=== PATIENT | female | born 1940 | race Caucasian/White ===

== ENCOUNTER → 2018-06-09 | Outpatient (CLI) | payer OTHER ==
[~2018-06-09] MED LIST: ACET-1175 PO; ALOE VERA PO; ARTISOL8 OP; ATV/1 PO; CALC600T9 PO; CHOL1CHW10 PO; CHRO1CAP3 PO; FERR27TA5 PO; FLV1 PO; LEVO75TA PO; NRN300 PO; OMEG10002 PO; PANT40TA PO; RXC5 PO; SERT25TA PO; TRAV0.00 OPB; VITA1TAB4 PO
--- NOTE | 2018-06-09 12:25 | DIAGNOSTIC IMAGING REPORT ---
CERVICAL SPINE MRI HISTORY: CERVICAL RADICULOPATHY TECHNIQUE: Multiplanar multisequence MRI of the cervical spine was performed without the use of contrast. COMPARISON STUDY: Cervical spine radiograph 04/14/2016. FINDINGS: Straightening of the cervical spine. Approximate 1 mm of anterolisthesis of C3 on C4. Mild disc space narrowing at C2-C3, C3-C4, and C4-C5. Severe disc space narrowing and endplate osteophytes at C5-C6 and C6-C7. There is also mild disc space narrowing at C7-T1 and within the upper thoracic spine. The cervical spinal cord is normal in signal intensity. The visualized posterior fossa is unremarkable. Prevertebral soft tissues and the C1-C2 interval are intact. No fractures within the cervical spine. Moderate facet degenerative changes throughout the cervical spine. C2-C3: Tiny broad-based posterior disc bulge without significant central canal or neural foraminal narrowing. C3-C4: Tiny broad-based posterior disc bulge without significant central canal narrowing. There is mild bilateral neural foraminal narrowing due to the uncovertebral and facet hypertrophy. C4-C5: No significant central canal or neural foraminal narrowing. C5-C6: Small broad-based posterior disc osteophyte complex resulting in near-complete effacement of the anterior thecal sac without cord deformity. There is mild bilateral neural foraminal narrowing. C6-C7: Broad-based posterior disc osteophyte complex resulting in near-complete effacement of the anterior thecal sac without cord deformity. There is mild bilateral neural foraminal narrowing. C7-T1: No significant central canal or neural foraminal narrowing. T1-T2: Small left paracentral focal disc protrusion only seen on the sagittal views. This measures 4 x 3 mm and results in slight left anterior cord deformity. No significant neural foraminal narrowing. IMPRESSION: 1. A small left paracentral focal disc protrusion at T1-T2 which results in mild left anterior cord deformity. 2. Additional degenerative changes within the cervical spine as described above most pronounced at the C5-C6 and C6-C7 levels. Electronically signed by: Monster Gaston M.D. 06/09/2018 12:24 PM Dictated Date/Time: 06/09/2018 12:09 PM
== END | disposition home or self-care (01) ==
LOC: C.MRIBC 11:08
PROVIDERS: ATTEND Pain Medicine Interventional Pain Medicine
DX: M54.12 Radiculopathy, cervical region (principal); M51.24 Other intervertebral disc displacement, thoracic region

== ENCOUNTER 2020-06-11 08:19 | Inpatient (IN) ==
--- NOTE | 2020-05-15 16:08 | PAT Medication Instructions ---
Medication Instructions Date of Service May 15, 2020 Home Medications aloe vera 5,000 mg PO QAM ascorbic acid (vitamin C) [Vitamin C] 500 mg PO BID bilberry 100 mg PO QAM calcium carbonate [Calcium 600] 600 mg PO BID celecoxib [Celebrex] 200 mg PO QAM cholecalciferol (vitamin D3) [Vitamin D3] 50 mcg PO QAM chromium amino acid chelate 400 mcg PO QAM cyclosporine [Restasis] 1 drp OPHTHALMIC (EYE) Q12H duloxetine 30 mg PO QAM folic acid 1 mg PO QAM gabapentin 300 mg PO BID iron 18 mg PO QAM levothyroxine 75 mcg PO QAM melatonin 5 mg PO HS PRN methotrexate sodium 2.5 mg PO WK multivitamin 1 tab PO QAM omega 8-gxl-xye-fish oil [Fish Oil] 2 cap PO QAM pantoprazole 40 mg PO QAM sucralfate 1 g PO BID tofacitinib [Xeljanz XR] 11 mg PO QAM travoprost [Travatan Z] 1 drp OPHTHALMIC (EYE) PM turmeric 400 mg PO QAM vitamin A 8,000 unit PO QAM vitamin B complex-folic acid [B Complex 100] 1 tab PO QAM vitamin E 400 unit PO QAM ASK your surgeon for instructions celecoxib [Celebrex] 200 mg PO QAM ASK your prescriber and surgeon methotrexate sodium 2.5 mg PO WK tofacitinib [Xeljanz XR] 11 mg PO QAM STOP taking 2 weeks before surgery (or as soon as possible if surgery is within 2 weeks) bilberry 100 mg PO QAM omega 8-rur-zle-fish oil [Fish Oil] 2 cap PO QAM turmeric 400 mg PO QAM vitamin E 400 unit PO QAM aloe vera 5,000 mg PO QAM chromium amino acid chelate 400 mcg PO QAM DO NOT take the morning of surgery ascorbic acid (vitamin C) [Vitamin C] 500 mg PO BID calcium carbonate [Calcium 600] 600 mg PO BID cholecalciferol (vitamin D3) [Vitamin D3] 50 mcg PO QAM folic acid 1 mg PO QAM iron 18 mg PO QAM multivitamin 1 tab PO QAM sucralfate 1 g PO BID vitamin A 8,000 unit PO QAM vitamin B complex-folic acid [B Complex 100] 1 tab PO QAM Take morning of surgery With a small sip of water, OTHERWISE NOTHING TO EAT OR DRINK AFTER MIDNIGHT: cyclosporine [Restasis] 1 drp OPHTHALMIC (EYE) Q12H duloxetine 30 mg PO QAM gabapentin 300 mg PO BID levothyroxine 75 mcg PO QAM pantoprazole 40 mg PO QAM Take evening before surgery ascorbic acid (vitamin C) [Vitamin C] 500 mg PO BID calcium carbonate [Calcium 600] 600 mg PO BID cyclosporine [Restasis] 1 drp OPHTHALMIC (EYE) Q12H gabapentin 300 mg PO BID melatonin 5 mg PO HS PRN (if needed) sucralfate 1 g PO BID travoprost [Travatan Z] 1 drp OPHTHALMIC (EYE) PM Other Notes If you have any questions please call us at [phone] or [phone] or [phone] or [phone]
--- NOTE | 2020-05-17 08:21 | History & Physical Report ---
Date of Service May 17, 2020 date of surgery: 06-11-20 Procedure: Left Total Knee Arthroplasty Assessment & Plan (1) Arthritis of knee, left: Risks and benefits of procedure discussed in detail today, patient would like to proceed with a Left total knee replacement at [facility] as scheduled. will obtain medical clearance from Dr Wheeler prior to surgery as well as obtain PATs at [facility]. Will place on ASA 81mg po bid x 1 month post op, f/u 2 weeks post op for routine post-operative care and x-ray, sooner if having any problems. will make arrangements for HHPT at the time of discharge. At this point in time, has failed conservative measures and would like to proceed with surgical intervention. The risks and benefits have been discussed including, but not limited to, risk of infection, nerve injury, stiffness, loss of motion, failure to improve, etc. Reasonable outcomes and options of treatment were discussed. An explanation of appropriate alternatives to the procedure that may be advantageous were discussed and their risks and benefits, as well as the risks and benefits of not proceeding with treatment. I offered to answer any additional inquiries concerning the treatment involved. All the patient's questions were answered. The patient is agreeable, understanding of the treatment plan and alternatives, and wishes to proceed with the treatment plan. History of Present Illness Chief Complaint: left knee pain Primary Care Provider: Colin Wheeler Ms Aguilar is a 79 year old female who complains of left knee pain, presents for pre-op evaluation prior to a left total knee replacement by dr Smalls at [facility]. she complains of pain, crepitus, decreased range of motion, instability and stiffness in the left knee. She states that the symptoms have been chronic and non-traumatic. she states that the symptoms occur constantly with intermittent worsening. Currently the patient states that the symptoms are moderate-severe. The pain is described as aching, sharp and throbbing. The symptoms occur continuously. The symptoms are aggravated by ascending stairs, daily activities, first steps while awake walking. Prior NSAIDs include Ibuprofen and Aleve. She has been treated with previous cortisone and visco injections in the past without much relief. She has had Pt and sometimes uses a knee brace. Allergies Allergy/AdvReac Type Severity Reaction Status Date / Time No Known Drug Allergies Allergy Unknown NKDA Verified 05/13/20 11:19 pollen extracts Allergy Unknown sneezing Verified 05/16/20 15:08 Home Medications Home Medications Medication Instructions Recorded Confirmed Type aloe vera 5,000 mg PO QAM 05/13/20 05/13/20 History ascorbic acid (vitamin C) [Vitamin 500 mg PO BID 05/13/20 05/13/20 History C] bilberry 100 mg PO QAM 05/13/20 05/13/20 History calcium carbonate [Calcium 600] 600 mg PO BID 05/13/20 05/13/20 History celecoxib [Celebrex] 200 mg PO QAM 05/13/20 05/13/20 History cholecalciferol (vitamin D3) 50 mcg PO QAM 05/13/20 05/13/20 History [Vitamin D3] chromium amino acid chelate 400 mcg PO QAM 05/13/20 05/13/20 History cyclosporine [Restasis] 1 drp OPHTHALMIC (EYE) Q12H 05/13/20 05/13/20 History duloxetine 30 mg PO QAM 05/13/20 05/13/20 History folic acid 1 mg PO QAM 05/13/20 05/13/20 History gabapentin 300 mg PO BID 05/13/20 05/13/20 History iron 18 mg PO QAM 05/13/20 05/13/20 History levothyroxine 75 mcg PO QAM 05/13/20 05/13/20 History melatonin 5 mg PO HS PRN 05/13/20 05/13/20 History methotrexate sodium 2.5 mg PO WK 05/13/20 05/13/20 History multivitamin 1 tab PO QAM 05/13/20 05/13/20 History omega 0-rus-ugm-fish oil [Fish Oil] 2 cap PO QAM 05/13/20 05/13/20 History pantoprazole 40 mg PO QAM 05/13/20 05/13/20 History sucralfate 1 g PO BID 05/13/20 05/13/20 History tofacitinib [Xeljanz XR] 11 mg PO QAM 05/13/20 05/13/20 History travoprost [Travatan Z] 1 drp OPHTHALMIC (EYE) PM 05/13/20 05/13/20 History turmeric 400 mg PO QAM 05/13/20 05/13/20 History vitamin A 8,000 unit PO QAM 05/13/20 05/13/20 History vitamin B complex-folic acid [B 1 tab PO QAM 05/13/20 05/13/20 History Complex 100] vitamin E 400 unit PO QAM 05/13/20 05/13/20 History Past Med/Surg History Medical History Cardiac murmur faxing for most recent echo ([facility]) Depression Diverticular disease Dry eye syndrome GERD (gastroesophageal reflux disease) Glaucoma tx for high eye pressure Hiatal hernia Hypothyroidism Osteoarthritis Rheumatoid arthritis c-spine xray: 04/14/16: mod degenerative changes, no evidence of instability with flexion and extension Spinal stenosis Surgical History Fusion of spine L2-L4 decompression fusion: 05/08/16: Grade 4 view, MAC #3, ETT 7.0 (poor view with MAC3, Anterior view) History of bowel resection 1988 History of cholecystectomy History of colonoscopy History of esophagogastroduodenoscopy (EGD) History of hysterectomy History of tonsillectomy History of tooth extraction History of total hip arthroplasty RIGHT Family History Mother Diabetes Sister Diabetes Social History Smoking Status: Never smoker Second Hand Exposure: No; Do You Dip or Chew Tobacco: No; Tobacco Cessation Education Requested by Patient: No Hx Alcohol Use: No Hx Substance Use: No Preferred Language: [place]an Communication Ability: Effective Finish Off Operator Required: No Beliefs That Will Affect Care: None Current Living Situation: Spouse Other Information That Helps Us Care for You: No Feels Safe at Home: Yes Safety Concerns: Feels Safe At This Time Review of Systems Review of Systems: All systems reviewed & are unremarkable except as noted in HPI & below Constitutional: no fever, no chills and no sweats Respiratory: no cough and no dyspnea Cardiovascular: no chest pain, no dyspnea and no orthopnea Gastrointestinal: no abdominal pain, no nausea and no vomiting Musculoskeletal: as per Subjective / HPI Physical Exam Physical Exam: Ht: 5ft Wt: 73.5kg BP: 138/68 Constitutional: WD/WN, vitals as above no acute distress Respiratory: normal respiratory effort, lungs clear to auscultation no respiratory distress, no labored breathing and does not use accessory muscles Cardiovascular: RRR, no murmur, no edema Gastrointestinal (Abdomen): normal bowel sounds, soft, nontender, no hepatosplenomegaly Musculoskeletal: Knee: + knee abnormal to inspection (Left knee), + effusion (+1 effusion), + limited ROM of knee (ROM 0/3/110), + knee ROM with crepitation, + joint line tenderness (medial joint line) and + Bethany's sign positive; no deformity, no skin erythema, no ecchymosis, no valgus laxity, no varus laxity, anterior drawer test negative, Bony's sign negative and pivot shift test negative Results & Data Results & Data ([facility]) Diagnostic Findings Left Knee X-ray: left knee series confirm advanced degenerative changes to the left knee, greatest medial compartments and patellofemoral joint, showing joint space narrowing, osteophyte formation and subchondral sclerosis. no acute bony pathology noted.
--- NOTE | 2020-05-17 15:31 | Anesthesiology Consultation ---
Date of Service May 17, 2020 Assessment & Plan (1) Encounter for pre-operative examination: Per PAT assessment on 05/17: Travel screen- No travel in greater than 2 weeks. Did travel to [place] 2+ weeks ago to visit brother. No known COVID-19 positive contacts. No current COVID-19 related symptoms. Patient scheduled for preop protocol COVID-19 testing 06/05 ([facility]). Awaiting results. - SAB vs. GA: patient reports significant foot pain and panic attack after spinal with previous hip surgery. Concerned about spinal for upcoming left TKA. Discussed SAB vs. GA. To discuss further AM DOS. - S/P L2-L4 decompression fusion: 05/08/16: Grade 4 view, MAC #3, ETT 7.0 (poor view with MAC3, Anterior view) Chart Review Chart Review: Acceptable Risk for Surgery (pending surgeon-ordered PCP clearance (Dr. Wheeler)) and Patient seen in Pre Admission Testing Teaching & Discussion Pre-Anesthesia Teaching/Discussion Notes: Instructed NPO after midnight before surgery,except medications with 15 cc of water. Medication instructions provided according to the PAT guidelines. History Surgery Operation Date: 06/11/20 10:05 Proposed Procedures p Left Total Knee Arthroplasty - Tyron Smalls DO Height/Weight Height: 5 ft Weight: 74.5 kg Allergies Allergy/AdvReac Type Severity Reaction Status Date / Time No Known Drug Allergies Allergy Unknown NKDA Verified 05/13/20 11:19 pollen extracts Allergy Unknown sneezing Verified 05/16/20 15:08 Medications Home Medications Medication Instructions Recorded Confirmed Last Taken aloe vera 5,000 mg PO QAM 05/13/20 05/13/20 Unknown ascorbic acid (vitamin C) [Vitamin 500 mg PO BID 05/13/20 05/13/20 Unknown C] bilberry 100 mg PO QAM 05/13/20 05/13/20 Unknown calcium carbonate [Calcium 600] 600 mg PO BID 05/13/20 05/13/20 Unknown celecoxib [Celebrex] 200 mg PO QAM 05/13/20 05/13/20 Unknown cholecalciferol (vitamin D3) 50 mcg PO QAM 05/13/20 05/13/20 Unknown [Vitamin D3] chromium amino acid chelate 400 mcg PO QAM 05/13/20 05/13/20 Unknown cyclosporine [Restasis] 1 drp OPHTHALMIC (EYE) Q12H 05/13/20 05/13/20 Unknown duloxetine 30 mg PO QAM 05/13/20 05/13/20 Unknown folic acid 1 mg PO QAM 05/13/20 05/13/20 Unknown gabapentin 300 mg PO BID 05/13/20 05/13/20 Unknown iron 18 mg PO QAM 05/13/20 05/13/20 Unknown levothyroxine 75 mcg PO QAM 05/13/20 05/13/20 Unknown melatonin 5 mg PO HS PRN 05/13/20 05/13/20 Unknown methotrexate sodium 2.5 mg PO WK 05/13/20 05/13/20 Unknown multivitamin 1 tab PO QAM 05/13/20 05/13/20 Unknown omega 7-txi-vff-fish oil [Fish Oil] 2 cap PO QAM 05/13/20 05/13/20 Unknown pantoprazole 40 mg PO QAM 05/13/20 05/13/20 Unknown sucralfate 1 g PO BID 05/13/20 05/13/20 Unknown tofacitinib [Xeljanz XR] 11 mg PO QAM 05/13/20 05/13/20 Unknown travoprost [Travatan Z] 1 drp OPHTHALMIC (EYE) PM 05/13/20 05/13/20 Unknown turmeric 400 mg PO QAM 05/13/20 05/13/20 Unknown vitamin A 8,000 unit PO QAM 05/13/20 05/13/20 Unknown vitamin B complex-folic acid [B 1 tab PO QAM 05/13/20 05/13/20 Unknown Complex 100] vitamin E 400 unit PO QAM 05/13/20 05/13/20 Unknown Past Medical History Medical History Depression Diverticular disease Dry eye syndrome GERD (gastroesophageal reflux disease) Glaucoma tx for high eye pressure Hiatal hernia Hypothyroidism Osteoarthritis Rheumatoid arthritis Spinal stenosis Exercise / Class Metabolic Activity III < 4 Walking/Shop/Light housework Past Family History Family History Mother Diabetes Sister Diabetes Past Surgical History Surgical History Fusion of spine L2-L4 decompression fusion: 7/15/16: Grade 4 view, MAC #3, ETT 7.0 (poor view with MAC3, Anterior view) History of bowel resection 1988 History of cholecystectomy History of colonoscopy History of esophagogastroduodenoscopy (EGD) History of hysterectomy History of tonsillectomy History of tooth extraction History of total hip arthroplasty RIGHT Past Anesthesia History No Hx of Anesthesia Complications and No Family Hx of Anesthesia Complications History of PONV No Hx of PONV and Hx of Motion Sickness Social History Smoking Status: Never smoker Do You Dip or Chew Tobacco: No Hx Alcohol Use: No Hx Substance Use: No substance use type: does not use Review of Systems Patient denies chest pain, shortness of breath, fever, chills, reflux, cough, wheezing, palpitations. Physical Exam Vital Signs VITALS BP 115/60 P 65 TEMP 98.2 SP02 94%RA RESP 18 PHYSICAL Full neck and c-spine range of motion. Full TMJ range of motion. TMD 3 finger breaths Mallampati Score 3 Dentition: intact, + bridge on right lower side Lungs: clear throughout to auscultation Cardiac: regular rate and rhythm, I/ systolic murmur Spine: normal Carotid arteries: negative bruit Extremities: no edema Testing Laboratory Results 05/17/20 15:55 05/17/20 15:55 PT 10.3 Seconds (9.0-12.0) 05/17/20 15:55 INR 1.0 (0.9-1.1) 05/17/20 15:55 APTT 27.9 Seconds (21.0-31.0) 05/17/20 15:55 Hemoglobin A1c 5.4 % (4.5-5.6) 05/17/20 15:55 Urine Color Dark Yellow 05/17/20 Unknown Urine Appearance Clear (Clear) 05/17/20 Unknown Urine pH 6.5 (4.5-7.5) 05/17/20 Unknown Ur Specific [place] 1.033 (1.000-1.030) H 05/17/20 Unknown Urine Protein Negative (Negative) 05/17/20 Unknown Urine Glucose (UA) Negative (Negative) 05/17/20 Unknown Urine Ketones Trace (Negative) H 05/17/20 Unknown Urine Nitrite Negative (Negative) 05/17/20 Unknown Ur Leukocyte Esterase Negative (Negative) 05/17/20 Unknown Blood Type O Positive 05/17/20 15:55 Antibody Screen NEGATIVE 05/17/20 15:55 Electrocardiogram Date: 05/17/20 NSR at 69bpm. Low voltage QRS. No significant change compared to 04/14/16 per physician practice manager review. Chest X-Ray Date: 05/17/20 Cardiomediastinal and hilar silhouettes are within normal limits. Unchanged mild right hemidiaphragmatic elevation. Mild chronic blunting of the right costophrenic angle. No pneumothorax, pleural effusion, airspace consolidation or overt pulmonary edema. Degenerative changes of the shoulders and spine. Surgical clips project over the abdominal left upper quadrant. Lumbar levoscoliosis with partially imaged posterior interbody mirian and screw fusion hardware and discectomy changes. IMPRESSION: No acute process. Stress Test Date: 08/02/19 Type: nuclear No EKG criteria for myocardial ischemia. Mild epigastric discomfort during procedure. Myocardial perfusion imaging was normal. No ischemia/no infarction. EF 96% (spuriously elevated on account of small LV cavity and the partial volume effect). Cervical Spine Date: 04/14/16 mod degenerative changes, no evidence of instability with flexion and extension
[2020-05-17 16:22] LABS: Basophils # (auto) 0.01 K/uL (0-0.2); Basophils % (auto) 0.1 %; Eosinophils # (auto) 0.07 K/uL (0-0.5); Hematocrit (blood only) 35.4 % (37-47); Hemoglobin 12.3 g/dL (12.0-16.0); Immature Granulocytes # (auto) 0.01 K/uL (0.00-0.02); Immature Granulocytes % (auto) 0.1 %; Lymphocytes # (auto) 1.56 K/uL (1.2-3.4); Lymphocytes % (auto) 22.6 %; Mean Corpuscular Hemoglobin 32.7 pg (25-34); Mean Corpuscular Hgb Conc 34.7 g/dL (32-36); Mean Corpuscular Volume 94.1 fL (80-100); Mean Platelet Volume 10.2 fL (7.4-10.4); Monocytes # (auto) 0.85 K/uL (0.11-0.59); Monocytes % (auto) 12.3 %; Neutrophils # (auto) 4.41 K/uL (1.4-6.5); Neutrophils % (auto) 63.9 %; Platelet Count 231 K/uL (130-400); RDW Coefficient of Variation 14.8 % (11.5-14.5); RDW Standard Deviation 50.9 fL (36.4-46.3); Red Blood Count 3.76 M/uL (4.2-5.4); White Blood Count 6.91 K/uL (4.8-10.8)
[2020-05-17 16:29] LABS: Albumin Level 3.7 gm/dl (3.4-5.0); BUN Creatinine Ratio 20.7 (10-20); Calcium 8.9 mg/dl (8.5-10.1); Creatinine Clr Calc Pharmacy 49.8 ml/min; Est GFR (African American) 77.2; Est GFR (Non-African American) 66.6; Potassium 4.3 mmol/L (3.5-5.1)
[2020-05-17 16:35] LABS: Partial Thromboplastin Time 27.9 Seconds (21.0-31.0); Prothrombin Time 10.3 Seconds (9.0-12.0)
--- NOTE | 2020-05-17 16:36 | XRay Report ---
XR chest Pre-admission PA/Lat HISTORY: 79 years-old Female pat preoperative exam. No acute chest complaints COMPARISON: Chest radiograph 04/14/2016 TECHNIQUE: PA and lateral views of the chest FINDINGS: Cardiomediastinal and hilar silhouettes are within normal limits. Unchanged mild right hemidiaphragma tic elevation. Mild chronic blunting of the right costophrenic angle. No pneumothorax, pleural effusi on, airspace consolidation or overt pulmonary edema. Degenerative changes of the shoulders and spine. Surgical clips project over the abdominal left upper quadrant. Lumbar levoscoliosis with partially i jolie posterior interbody mirian and screw fusion hardware and discectomy changes. IMPRESSION: No acute process. ACT 112: Negative or not required by law. The above report was generated using voice recognition software. It may contain grammatical, syntax o r spelling errors. Electronically signed by: Sanjiv Delvalle M.D. 05/17/2020 4:34 PM
[2020-05-17 16:37] LABS: Appearance Urine Clear (Clear); Bilirubin Urine Negative (Negative); Blood Urine Negative (Negative); Color Urine Dark Yellow; Glucose Urine UA Negative (Negative); Ketones Urine Trace (Negative); Leukocyte Esterase Urine Negative (Negative); Nitrite Urine Negative (Negative); Protein Urine Negative (Negative); Specific Gravity Urine 1.033 (1.000-1.030); Urobilinogen Urine Negative (Negative); pH Urine 6.5 (4.5-7.5)
--- NOTE | 2020-05-17 16:39 | Electrocardiogram Report ---
Test Reason : Blood Pressure : / mmHG Vent. Rate : 069 BPM Atrial Rate : 069 BPM P-R Int : 150 ms QRS Dur : 074 ms QT Int : 426 ms P-R-T Axes : 033 022 037 degrees QTc Int : 456 ms Normal sinus rhythm Low voltage QRS Borderline ECG When compared with ECG of 14-APR-2016 11:35, No significant change was found Confirmed by Vinay Hernandez ([id number]) on 05/17/2020 4:39:02 PM Referred By: Tyron Smalls Confirmed By:Vinay Hernandez
[2020-05-18 05:52] LABS: Estimated Average Glucose 108 mg/dl; Hemoglobin A1C 5.4 % (4.5-5.6)
[~2020-06-11 08:19] MED LIST changes: -ACET-1175 PO; +ACETAMINOPHEN 500 MG TAB PO SCH; -ALOE VERA PO; -ARTISOL8 OP; -ATV/1 PO; +BUPIVACAINE 0.5 % 5 MG/1 ML PF 10ML VIAL ONE; -CALC600T9 PO; +CEFAZOLIN 1000MG 1,000 MG/7.5 ML SYR IV SCH; -CHOL1CHW10 PO; -CHRO1CAP3 PO; +CeleBREX 200 MG CAP PO SCH; +FAMOTIDINE 20 MG TAB PO SCH; -FERR27TA5 PO; -FLV1 PO; +GABAPENTIN 300 MG CAP PO SCH; -LEVO75TA PO; +LIDOCAINE HCL 2% 2 ML VIAL/AMP(20MG/ML) INFIL ONE; +LR 500ML BOLUS, THEN 15ML/HR IV SCH; +METOCLOPRAMIDE HCL 10 MG TABLET PO SCH; +MIDAZOLAM HCL 1 MG/ML 2ML VIAL ONE; -NRN300 PO; -OMEG10002 PO; +ONDANSETRON INJ 2 MG/ML 2 ML VIAL ONE; -PANT40TA PO; +PROPOFOL IV EMULSION 10 MG/ML 20 ML VIAL IV ONE; +ROPIVACAINE 0.5% HCL/PF 150 MG, BUPIVACAINE 0.5% MPF 30 ML, EPINEPHrine 30MG/30ML (OR U... INSTIL SCH; -RXC5 PO; -SERT25TA PO; +TRANEXAMIC ACID 1,000 MG **IV Intra-op IV SCH; +TRANEXAMIC ACID 1,000 MG **IV Pre-op IV SCH; -TRAV0.00 OPB; -VITA1TAB4 PO; +dexAMETHasone 4 MG TAB PO SCH; +fentaNYL citrate 100 MCG/2 ML VIAL ONE
--- NOTE | 2020-06-11 08:37 | History & Physical Bridge Note ---
Date of Service June 11, 2020 History & Physical Bridge Note I have examined the patient, reviewed the History & Physical and in the interval since the performance of the History & Physical I have noted the following changes of clinical significance: no changes noted
[2020-06-11] MEDS ORDERED: ORTHO JOINT ANESTHETIC ONE (09:14)
[2020-06-11] MEDS ORDERED: BACITRACIN INJ 50,000 UNIT VIAL ONE (09:14)
[2020-06-11] MEDS ORDERED: fentaNYL citrate 100 MCG/2 ML VIAL IV PRN (09:26)
[2020-06-11] MEDS ORDERED: ePHEDrine sulfate 50 MG/ML AMP IV PRN (09:26)
[2020-06-11] MEDS ORDERED: ATROPINE SULFATE 0.1 MG/ML 10ML SYR IV PRN (09:26)
[2020-06-11] MEDS ORDERED: ONDANSETRON INJ 2 MG/ML 2 ML VIAL IV PRN ×2 (09:26→12:39)
--- NOTE | 2020-06-11 10:56 | Operative Report ---
Post Operative Report Pre & Post Diagnosis Operation Date: 06/11/20 10:05 Pre-Op Diagnosis: Unilateral Primary Osteoarthritis, Left Knee Post-Op Diagnosis: Unilateral Primary Osteoarthritis, Left Knee I identified the patient and participated in the time-out.: Yes Procedure Operation Date: 06/11/20 10:05 Actual Procedures p Left Total Knee Arthroplasty(Left) utilizing [employer]ph[employer]ave[employer] journey 2 patient matched total knee arthroplasty size 2 femur 1 tibia 12 polyethylene 29 oval patella- Tyron Smalls DO Surgeon Tyron Smalls DO Fixed Wing Pilot DANILO Butcher Estimated Blood Loss 5 Findings Consistent with Post-Op Diagnosis Patient presents with severe end-stage tricompartmental degenerative joint disease varus alignment subchondral sclerosis marginal osteophytes varus alignment subchondral cystic changes with a moderate to large effusion 7 degree flexion contracture Specimens Bone and cartilage Drains Medium bore Hemovac Anesthesia Type MAC Spinal Regional Complications none Disposition Accompanied Patient To Recovery: No Disposition: Recovery Room Indications Patient presents for left total knee arthroplasty for failed attempted conservative management daily corticosteroid injection Visco supplementation relative rest activity modification bracing patient presents above intraoperative findings are noted time surgery Description of Procedure After proper prepping and draping of the left lower extremity anterior midline incision was made over the region of the extensor extensor mechanism after meticulous hemostasis was obtained and maintained in subcutaneous tissues a medial parapatellar incision was made The patella was subluxed lateralward the medial lateral gutter were cleaned from any hypertrophic synovitis and scar tissue of the distal femoral block was placed and the distal femoral osteotomy cut was made subsequently the chamfers anterior and posterior osteotomy cuts were made utilizing the 4-in-1 block the tibia was subsequently subluxed anteriorward medial and ateral meniscal remnants were excised in their entirety remnants of the anterior and posterior cruciate ligaments were excised in their entirety excellent exposure of the proximal tibia was obtained the tibial osteotomy guide was placed on the proximal tibial osteotomy cut was made once again the knee was irrigated with copious amounts of sterile saline solution the patella was subsequently everted lateralward thickened scar tissue around the patella was removed the patella was subsequently cut utilizing a freehand technique and was drilled prepared for final preparation and placement of patella socially flexion-extension gaps were checked and the equal and symmetric trials were placed to the appropriate femoral and tibial trials with poly-spacer being placed for equal flexion and extension gaps and full range of motion including extension to 0 and flexion to 140 the trial components after having been taken to recovery range of motion was subsequently removed meticulous hemostasis was obtained and maintained subsequently a knee block injection of joint cocktail including ropivacaine 0.5% 150 mg. Bupivacaine 0.5% epinephrine 1-200,030 mL's toradol 30 mg dexamethasone 4 mg ketamine 10 mg clonidine 100 micrograms normal saline solution 30 mg was infiltrated into the soft tissues of the posterior knee medial lateral gutters and periosteal synovium special attention was paid to protect neurovascular structures at all times subsequently trial components having been removed the knee was irrigated with sterile saline solution. debris was removed the proximal tibia was subsequently prepared and was made ready for the placement of the tibial component tibial component was also cemented and tamped into position the femoral component was subsequently placed and cemented in the position the patellar component was subsequently cemented in position because hemostasis once again obtained and maintained wound having been thoroughly irrigated with debridement and debridement lavage was performed as well as a medial parapatellar incision closed with #1 Vicryl in interrupted fashion subcutaneous was closed with #2 Vicryl skin was closed with skin clips. PA-C was necessary for prepping and drapping as well as wound closure of deep fascia Sub cutaneous tissue and skin and was necessary for the case. A sterile compressive dressing was placed patient was taken to recovery in stable condition of report dictated by Slim I attest to the content of the Intraoperative Record and any orders documented therein. Any exceptions are noted below. I attest to the content of the Intraoperative Record and any orders documented therein. Any exceptions are noted below.
--- NOTE | 2020-06-11 10:58 | Operative Report ---
Post Operative Report Pre & Post Diagnosis Operation Date: 06/11/20 10:05 Pre-Op Diagnosis: Unilateral Primary Osteoarthritis, Left Knee Post-Op Diagnosis: Unilateral Primary Osteoarthritis, Left Knee I identified the patient and participated in the time-out.: Yes Procedure Operation Date: 06/11/20 10:05 Actual Procedures p Left Total Knee Arthroplasty(Left utilizing Wall & Neph journey 2 patient matched total knee arthroplasty size 2 femur 1 tibia 12 polyethylene 29 oval patella- Tyron Smalls DO Surgeon Tyron Smalls DO Engineering Recruiter DANILO Butcher Estimated Blood Loss 5 Findings Consistent with Post-Op Diagnosis Patient resents with severe end-stage tricompartmental degenerative joint disease varus alignment subchondral sclerosis marginal osteophytes varus alignment with moderate to large effusion Specimens Bone and cartilage Drains Medium bore Hemovac Anesthesia Type MAC Spinal Regional Complications none Disposition Accompanied Patient To Recovery: No Disposition: Recovery Room Indications Patient presents with a failed attempted conservative management clinic physical therapy anti-inflammatories relative rest activity modification corticosteroid injection Visco supplementation the above intraoperative findings were noted Description of Procedure After proper prepping and draping of the left lower extremity anterior midline incision was made over the region of the extensor extensor mechanism after meticulous hemostasis was obtained and maintained in subcutaneous tissues a medial parapatellar incision was made The patella was subluxed lateralward the medial lateral gutter were cleaned from any hypertrophic synovitis and scar tissue of the distal femoral block was placed and the distal femoral osteotomy cut was made subsequently the chamfers anterior and posterior osteotomy cuts were made utilizing the 4-in-1 block the tibia was subsequently subluxed anteriorward medial and ateral meniscal remnants were excised in their entirety remnants of the anterior and posterior cruciate ligaments were excised in their entirety excellent exposure of the proximal tibia was obtained the tibial osteotomy guide was placed on the proximal tibial osteotomy cut was made once again the knee was irrigated with copious amounts of sterile saline solution the patella was subsequently everted lateralward thickened scar tissue around the patella was removed the patella was subsequently cut utilizing a freehand technique and was drilled prepared for final preparation and placement of patella socially flexion-extension gaps were checked and the equal and symmetric trials were placed to the appropriate femoral and tibial trials with poly-spacer being placed for equal flexion and extension gaps and full range of motion including extension to 0 and flexion to 140 the trial components after having been taken to recovery range of motion was subsequently removed meticulous hemostasis was obtained and maintained subsequently a knee block injection of joint cocktail including ropivacaine 0.5% 150 mg. Bupivacaine 0.5% epinephrine 1-200,030 mL's toradol 30 mg dexamethasone 4 mg ketamine 10 mg clonidine 100 micrograms normal saline solution 30 mg was infiltrated into the soft tissues of the posterior knee medial lateral gutters and periosteal synovium special attention was paid to protect neurovascular structures at all times subsequently trial components having been removed the knee was irrigated with sterile saline solution. debris was removed the proximal tibia was subsequently prepared and was made ready for the placement of the tibial component tibial component was also cemented and tamped into position the femoral component was subsequently placed and cemented in the position the patellar component was subsequently cemented in position because hemostasis once again obtained and maintained wound having been thoroughly irrigated with debridement and debridement lavage was performed as well as a medial parapatellar incision closed with #1 Vicryl in interrupted fashion subcutaneous was closed with #2 Vicryl skin was closed with skin clips. PA-C was necessary for prepping and drapping as well as wound closure of deep fascia Sub cutaneous tissue and skin and was necessary for the case. A sterile compressive dressing was placed patient was taken to recovery in stable condition of report dictated by Slim I attest to the content of the Intraoperative Record and any orders documented therein. Any exceptions are noted below. I attest to the content of the Intraoperative Record and any orders documented therein. Any exceptions are noted below.
--- NOTE | 2020-06-11 12:07 | XRay Report ---
XR knee LT 1 or 2V routine HISTORY: 79 years-old Female Surgical Post Op left knee total joint arthroplasty COMPARISON: None TECHNIQUE: 2 views of the left knee FINDINGS: Left knee total joint arthroplasty and patella resurfacing. Anterior midline skin magui are noted a long with expected postsurgical soft tissue swelling and deep tissue air with surgical drainage nayan ter. IMPRESSION: Left knee total joint arthroplasty with expected postoperative changes. ACT 112: Negative or not required by law. The above report was generated using voice recognition software. It may contain grammatical, syntax o r spelling errors. Electronically signed by: Sanjiv Delvalle M.D. 06/11/2020 12:05 PM
--- NOTE | 2020-06-11 12:24 | Anesthesiology Progress Note ---
Date of Service June 11, 2020 Anesthesia Post Procedure Vital Signs Vital Signs: Temp Pulse Pulse Resp BP Pulse Ox 06/11/20 12:10 65 12 144/65 H 94 06/11/20 12:00 70 16 127/56 L 94 06/11/20 11:50 65 13 134/56 L 97 06/11/20 11:42 97.0 F L 66 16 127/52 L 95 06/11/20 09:30 68 18 127/114 H 97 06/11/20 08:57 98.2 F 76 20 159/75 H 96 Pain Intensity Generalized: Pain Intensity: 7 Transfer of Care Handoff Completed per policy Notes Mental Status: alert / awake / arousable and participated in evaluation Patient Amnestic to Procedure: Yes Nausea / Vomiting: adequately controlled Pain: adequately controlled Airway Patency, RR, SpO2: stable & adequate BP & HR: stable & adequate Hydration State: stable & adequate Neuraxial Anesthesia: was administered and sensory block is resolving Anesthetic Complications: no major complications apparent and Pt Satisfied with anesthetic care
[2020-06-11] MEDS ORDERED: OXYCODONE HCL IR 5 MG TAB (IMMEDIATE RELEASE) PO PRN (12:39)
[2020-06-11] MEDS ORDERED: METOCLOPRAMIDE HCL INJ 5 MG/ML 2 ML VIAL IV PRN (12:39)
[2020-06-11] MEDS ORDERED: bisacodyL 10 MG SUPP PR PRN (12:39)
[2020-06-11] MEDS ORDERED: ALUMINUM/MAGNESIUM SUSP 30 ML UDC PO PRN (12:39)
[2020-06-11] MEDS ORDERED: MAGNESIUM HYDROXIDE SUSP 30 ML UDC PO PRN (12:39)
[2020-06-11] MEDS ORDERED: HYDROmorphone INJ 1 MG/ML SYRINGE IV PRN (12:39)
[2020-06-11] MEDS ORDERED: NALOXONE HCL 0.4 MG/1 ML VIAL/CARP IV PRN (12:39)
[2020-06-11] MEDS: SODIUM CHLORIDE 0.9% 1000ML 1,000 ML IV SCH (13:41)
[2020-06-11] MEDS: KETOROLAC TROMETHAMINE 15 MG/ML VIAL IV SCH ×2 (13:42→18:20)
[2020-06-11] MEDS: ACETAMINOPHEN 500 MG TAB PO SCH ×2 (14:50→22:13)
[2020-06-11] MEDS: CEFAZOLIN 1000MG 1,000 MG/7.5 ML SYR IV SCH (18:20)
[2020-06-11] MEDS: ASCORBIC ACID 500 MG TAB PO SCH (20:52)
[2020-06-11] MEDS: SUCRALFATE 1 GM TAB PO SCH (20:53)
[2020-06-11] MEDS: GABAPENTIN 300 MG CAP PO SCH (20:53)
[2020-06-11] MEDS: DOCUSATE SODIUM 100 MG CAP PO SCH (20:53)
[2020-06-11] MEDS: ASPIRIN 81 MG ECTAB PO SCH (20:53)
[2020-06-11] MEDS: CALCIUM CARBONATE 1250MG TAB PO SCH (20:54)
[2020-06-11] MEDS ORDERED: TRAVOPROST Z 0.004% OPH SOLN 2.5 ML BTL OP SCH (21:00)
[2020-06-11] MEDS ORDERED: SENNA 8.6 MG TAB PO SCH (21:00)
[2020-06-12] MEDS: SODIUM CHLORIDE 0.9% 1000ML 1,000 ML IV SCH (00:30)
[2020-06-12] MEDS: CEFAZOLIN 1000MG 1,000 MG/7.5 ML SYR IV SCH (01:11)
[2020-06-12] MEDS: KETOROLAC TROMETHAMINE 15 MG/ML VIAL IV SCH ×2 (01:11→06:11)
[2020-06-12] MEDS: ACETAMINOPHEN 500 MG TAB PO SCH ×2 (06:10→13:36)
[2020-06-12 06:22] LABS: Hematocrit (blood only) 32.3 % (37-47); Hemoglobin 10.9 g/dL (12.0-16.0); Mean Corpuscular Hemoglobin 31.3 pg (25-34); Mean Corpuscular Hgb Conc 33.7 g/dL (32-36); Mean Corpuscular Volume 92.8 fL (80-100); Mean Platelet Volume 10.4 fL (7.4-10.4); Platelet Count 206 K/uL (130-400); RDW Coefficient of Variation 14.5 % (11.5-14.5); RDW Standard Deviation 49.4 fL (36.4-46.3); Red Blood Count 3.48 M/uL (4.2-5.4); White Blood Count 12.44 K/uL (4.8-10.8)
[2020-06-12] MEDS ORDERED: LEVOTHYROXINE SODIUM 100 MCG TABLET PO SCH (06:30)
[2020-06-12 06:53] LABS: BUN Creatinine Ratio 25.3 (10-20); Calcium 8.6 mg/dl (8.5-10.1); Creatinine Clr Calc Pharmacy 54.9 ml/min; Est GFR (African American) 87.1; Est GFR (Non-African American) 75.1; Potassium 4.6 mmol/L (3.5-5.1)
[2020-06-12] MEDS: SUCRALFATE 1 GM TAB PO SCH (08:33)
[2020-06-12] MEDS: DOCUSATE SODIUM 100 MG CAP PO SCH (08:33)
[2020-06-12] MEDS: ASPIRIN 81 MG ECTAB PO SCH (08:34)
[2020-06-12] MEDS: CALCIUM CARBONATE 1250MG TAB PO SCH (08:35)
[2020-06-12] MEDS: ASCORBIC ACID 500 MG TAB PO SCH (08:35)
[2020-06-12] MEDS: GABAPENTIN 300 MG CAP PO SCH (08:35)
[2020-06-12] MEDS ORDERED: CHOLECALCIFEROL 1,000 UNITS 25 MCG TAB PO SCH (09:00)
[2020-06-12] MEDS ORDERED: VITAMIN B COMPLEX TAB PO SCH (09:00)
[2020-06-12] MEDS ORDERED: NON-FORMULARY MEDICATION (Vitamin A 8,000 UNITS) PO SCH (09:00)
[2020-06-12] MEDS ORDERED: TOCOPHERYL, DL-ALPHA 400 UNITS CAP PO SCH (09:00)
[2020-06-12] MEDS ORDERED: NON-FORMULARY MEDICATION (Iron 18 MG) PO SCH (09:00)
[2020-06-12] MEDS ORDERED: MULTIVITAMIN TAB PO SCH (09:00)
[2020-06-12] MEDS ORDERED: FOLIC ACID 1 MG TAB PO SCH (09:00)
[2020-06-12] MEDS ORDERED: DULOXETINE HCL 30 MG CAP PO SCH (09:00)
--- NOTE | 2020-06-12 12:37 | Orthopedic Progress Note ---
Date of Service June 12, 2020 Assessment & Plan (1) History of total left knee replacement: POD #1 s/p left TKA pt/ot dvt proph with ZAN/SCD/ASA plan for d/c home with HHPT after PT today will leave hemovac in until tomorrow have HH pull hemovac tomorrow am. Admission and Anticipated Discharge Date Admission Date: June 11, 2020 Subjective POD #1 s/p Left TKA dr lehman in to see patient just prior to my arrival, she has no complaints. Review of Systems Constitutional: no fever, no chills and no sweats Respiratory: no cough and no dyspnea Cardiovascular: no chest pain and no dyspnea Gastrointestinal: no abdominal pain, no nausea and no vomiting Physical Exam Physical Exam: Vital Signs Temp 37.2 C 06/12/20 07:45 Pulse 70 06/12/20 07:45 Resp 16 06/12/20 07:45 BP 120/67 06/12/20 07:45 Pulse Ox 97 06/12/20 07:45 Intake & Output 06/11/20 06/12/20 06/12/20 18:59 06:59 18:59 Intake Total 1431.667 / 2960.00 0 1528.333 / 2960.00 0 Output Total 946 / 2621 1675 / 2621 Balance 485.667 / 339.000 -146.667 / 339.000 Weight 74.3 kg Intake: IV 731.667 / 1600.000 868.333 / 1600.000 Lr 1,000 ml @ 15 mls/hr IV . 500 / 500 Q24H [facility] Rx#:[id number] Nss 1000ML 1,0 00 ml @ 100 mls/ 131.667 / 1000.000 868.333 / 1000.000 hr IV .Q10H SC H Rx#:[id number] TRANEXAMIC ACI D / 0.7% NACL 1, 100 / 100 000 mg In 100 ml @ 600 mls/hr IV TODAY@0600 [facility] Rx#:[id number] IV Perioperative 700 / 700 Oral 660 / 660 Output: Urine 900 / 2350 1450 / 2350 Estimated Blood Loss 5 / 5 Drain Output 41 / 266 225 / 266 Left Knee Hemo vac #1 266 225 / 266 Other: # Unmeasured Voi ds 1 Constitutional: WD/WN, vitals as above no acute distress Musculoskeletal: Left Leg: NVDI, calf SNT, negative elva sign. DP palpable, able to wiggle toes/ankle movement without difficulty. dressing clean dry and intact. Results & Data ([facility]) Vital Signs (Past 12 Hours) Vital Signs Temp Pulse Resp BP Pulse Ox 06/12/20 07:45 37.2 C 70 16 120/67 97 06/12/20 03:59 36.8 C 80 16 117/70 96 Laboratory Results Laboratory Results WBC 12.44 K/uL (4.8-10.8) H 06/12/20 05:15 RBC 3.48 M/uL (4.2-5.4) L 06/12/20 05:15 Hgb 10.9 g/dL (12.0-16.0) L 06/12/20 05:15 Hct 32.3 % (37-47) L 06/12/20 05:15 MCV 92.8 fL (80-100) 06/12/20 05:15 MCH 31.3 pg (25-34) 06/12/20 05:15 MCHC 33.7 g/dL (32-36) 06/12/20 05:15 RDW Std Deviation 49.4 fL (36.4-46.3) H 06/12/20 05:15 RDW Coeff of Darian 14.5 % (11.5-14.5) 06/12/20 05:15 Plt Count 206 K/uL (130-400) 06/12/20 05:15 MPV 10.4 fL (7.4-10.4) 06/12/20 05:15 Immature Gran % (Auto) 0.1 % 05/17/20 15:55 Neut % (Auto) 63.9 % 05/17/20 15:55 Lymph % (Auto) 22.6 % 05/17/20 15:55 Casey % (Auto) 12.3 % 05/17/20 15:55 Eos % (Auto) 1.0 % 05/17/20 15:55 Baso % (Auto) 0.1 % 05/17/20 15:55 Neut # (Auto) 4.41 K/uL (1.4-6.5) 05/17/20 15:55 Lymph # (Auto) 1.56 K/uL (1.2-3.4) 05/17/20 15:55 Casey # (Auto) 0.85 K/uL (0.11-0.59) H 05/17/20 15:55 Eos # (Auto) 0.07 K/uL (0-0.5) 05/17/20 15:55 Baso # (Auto) 0.01 K/uL (0-0.2) 05/17/20 15:55 Immature Gran # (Auto) 0.01 K/uL (0.00-0.02) 05/17/20 15:55 PT 10.3 Seconds (9.0-12.0) 05/17/20 15:55 INR 1.0 (0.9-1.1) 05/17/20 15:55 APTT 27.9 Seconds (21.0-31.0) 05/17/20 15:55 PTT Ratio 1.0 05/17/20 15:55 Sodium 142 mmol/L (136-145) 06/12/20 05:15 Potassium 4.6 mmol/L (3.5-5.1) 06/12/20 05:15 Chloride 111 mmol/L (98-107) H 06/12/20 05:15 Carbon Dioxide 26 mmol/L (21-32) 06/12/20 05:15 Anion Gap 5.0 (3-11) 06/12/20 05:15 BUN 19 mg/dl (7-18) H 06/12/20 05:15 Creatinine 0.76 mg/dl (0.6-1.2) 06/12/20 05:15 Est Cr Clr Drug Dosing 54.9 ml/min 06/12/20 05:15 Est GFR ( Amer) 87.1 06/12/20 05:15 Est GFR (Non-Af Amer) 75.1 06/12/20 05:15 BUN/Creatinine Ratio 25.3 (10-20) H 06/12/20 05:15 Glucose 124 mg/dl (70-99) H 06/12/20 05:15 Estimat Average Glucose 108 mg/dl 05/17/20 15:55 Hemoglobin A1c 5.4 % (4.5-5.6) 05/17/20 15:55 Calcium 8.6 mg/dl (8.5-10.1) 08/19/20 05:15 Albumin 3.7 gm/dl (3.4-5.0) 05/17/20 15:55 Urine Color Dark Yellow 05/17/20 Unknown Urine Appearance Clear (Clear) 05/17/20 Unknown Urine pH 6.5 (4.5-7.5) 05/17/20 Unknown Ur Specific [place] 1.033 (1.000-1.030) H 05/17/20 Unknown Urine Protein Negative (Negative) 05/17/20 Unknown Urine Glucose (UA) Negative (Negative) 05/17/20 Unknown Urine Ketones Trace (Negative) H 05/17/20 Unknown Urine Blood Negative (Negative) 05/17/20 Unknown Urine Nitrite Negative (Negative) 05/17/20 Unknown Urine Bilirubin Negative (Negative) 05/17/20 Unknown Urine Urobilinogen Negative (Negative) 05/17/20 Unknown Ur Leukocyte Esterase Negative (Negative) 05/17/20 Unknown Blood Type O Positive 05/17/20 15:55 Antibody Screen NEGATIVE 05/17/20 15:55
[2020-06-12] MEDS ORDERED: CeleBREX 200 MG CAP PO SCH (21:00)
--- NOTE | 2020-06-13 07:46 | Discharge Summary ---
Date of Service date of discharge: June 12, 2020 date of admission: 06-11-20 Admission HPI Per Admitting Provider Ms Aguilar is a 79 year old female who complains of left knee pain, presents for pre-op evaluation prior to a left total knee replacement by dr Smalls at [facility]. she complains of pain, crepitus, decreased range of motion, instability and stiffness in the left knee. She states that the symptoms have been chronic and non-traumatic. she states that the symptoms occur constantly with intermittent worsening. Currently the patient states that the symptoms are moderate-severe. The pain is described as aching, sharp and throbbing. The symptoms occur continuously. The symptoms are aggravated by ascending stairs, daily activities, first steps while awake walking. Prior NSAIDs include Ibuprofen and Aleve. She has been treated with previous cortisone and visco injections in the past without much relief. She has had Pt and sometimes uses a knee brace. Principal Diagnosis left knee arthritis Discharge Exam Vital Signs Temp 37.1 C 06/12/20 15:00 Pulse 77 06/12/20 15:00 Resp 16 06/12/20 15:00 BP 133/78 06/12/20 15:00 Pulse Ox 96 06/12/20 15:00 Intake & Output 06/12/20 06/13/20 06/13/20 18:59 06:59 18:59 Output Total 125 / 125 Balance -125 / -125 Weight 74.3 kg Output: Drain Output 125 / 125 Left Knee Hemovac #1 125 / 125 Constitutional WD/WN, vitals as above no acute distress Musculoskeletal left knee: NVDI, calf SNT, negative elva sign. DP palpable, able to wiggle toes/ankle movement without difficulty. Discharge Data Allergies Allergy/AdvReac Type Severity Reaction Status Date / Time No Known Drug Allergies Allergy Unknown NKDA Verified 06/11/20 08:31 pollen extracts Allergy Unknown sneezing Verified 06/11/20 08:31 Consultations 06/11/20 12:39 Consult Case Management - Discharge Planning Routine Procedures Performed Operation Date: 06/11/20 10:05 Actual Procedures p Left Total Knee Arthroplasty(Left) - Tyron Smalls DO Ordered Studies 06/11/20 05:00 US - OR guided needle placemen Routine Hospital Course (1) History of total left knee replacement: POD #1 s/p left TKA pt/ot dvt proph with ZAN/SCD/ASA plan for d/c home with HHPT after PT today will leave hemovac in until tomorrow have HH pull hemovac tomorrow am. Laboratory Results WBC 12.44 K/uL (4.8-10.8) H 06/12/20 05:15 RBC 3.48 M/uL (4.2-5.4) L 06/12/20 05:15 Hgb 10.9 g/dL (12.0-16.0) L 06/12/20 05:15 Hct 32.3 % (37-47) L 06/12/20 05:15 MCV 92.8 fL (80-100) 06/12/20 05:15 MCH 31.3 pg (25-34) 06/12/20 05:15 MCHC 33.7 g/dL (32-36) 06/12/20 05:15 RDW Std Deviation 49.4 fL (36.4-46.3) H 06/12/20 05:15 RDW Coeff of Darian 14.5 % (11.5-14.5) 06/12/20 05:15 Plt Count 206 K/uL (130-400) 06/12/20 05:15 MPV 10.4 fL (7.4-10.4) 06/12/20 05:15 Immature Gran % (Auto) 0.1 % 05/17/20 15:55 Neut % (Auto) 63.9 % 05/17/20 15:55 Lymph % (Auto) 22.6 % 05/17/20 15:55 Alcorn % (Auto) 12.3 % 05/17/20 15:55 Eos % (Auto) 1.0 % 05/17/20 15:55 Baso % (Auto) 0.1 % 05/17/20 15:55 Neut # (Auto) 4.41 K/uL (1.4-6.5) 05/17/20 15:55 Lymph # (Auto) 1.56 K/uL (1.2-3.4) 05/17/20 15:55 Alcorn # (Auto) 0.85 K/uL (0.11-0.59) H 05/17/20 15:55 Eos # (Auto) 0.07 K/uL (0-0.5) 05/17/20 15:55 Baso # (Auto) 0.01 K/uL (0-0.2) 05/17/20 15:55 Immature Gran # (Auto) 0.01 K/uL (0.00-0.02) 05/17/20 15:55 PT 10.3 Seconds (9.0-12.0) 05/17/20 15:55 INR 1.0 (0.9-1.1) 05/17/20 15:55 APTT 27.9 Seconds (21.0-31.0) 05/17/20 15:55 PTT Ratio 1.0 05/17/20 15:55 Sodium 142 mmol/L (136-145) 06/12/20 05:15 Potassium 4.6 mmol/L (3.5-5.1) 06/12/20 05:15 Chloride 111 mmol/L (98-107) H 06/12/20 05:15 Carbon Dioxide 26 mmol/L (21-32) 06/12/20 05:15 Anion Gap 5.0 (3-11) 06/12/20 05:15 BUN 19 mg/dl (7-18) H 06/12/20 05:15 Creatinine 0.76 mg/dl (0.6-1.2) 06/12/20 05:15 Est Cr Clr Drug Dosing 54.9 ml/min 06/12/20 05:15 Est GFR ( Amer) 87.1 06/12/20 05:15 Est GFR (Non-Af Amer) 75.1 06/12/20 05:15 BUN/Creatinine Ratio 25.3 (10-20) H 06/12/20 05:15 Glucose 124 mg/dl (70-99) H 06/12/20 05:15 Estimat Average Glucose 108 mg/dl 05/17/20 15:55 Hemoglobin A1c 5.4 % (4.5-5.6) 05/17/20 15:55 Calcium 8.6 mg/dl (8.5-10.1) 06/12/20 05:15 Albumin 3.7 gm/dl (3.4-5.0) 05/17/20 15:55 Urine Color Dark Yellow 05/17/20 Unknown Urine Appearance Clear (Clear) 05/17/20 Unknown Urine pH 6.5 (4.5-7.5) 05/17/20 Unknown Ur Specific [place] 1.033 (1.000-1.030) H 05/17/20 Unknown Urine Protein Negative (Negative) 05/17/20 Unknown Urine Glucose (UA) Negative (Negative) 05/17/20 Unknown Urine Ketones Trace (Negative) H 05/17/20 Unknown Urine Blood Negative (Negative) 05/17/20 Unknown Urine Nitrite Negative (Negative) 05/17/20 Unknown Urine Bilirubin Negative (Negative) 05/17/20 Unknown Urine Urobilinogen Negative (Negative) 05/17/20 Unknown Ur Leukocyte Esterase Negative (Negative) 05/17/20 Unknown Blood Type O Positive 05/17/20 15:55 Antibody Screen NEGATIVE 05/17/20 15:55 Total Time Total Time Spent Total Time Spent (In Minutes): 20 Total Time Includes: Examination of the Patient, Discharge Planning and Medication Reconciliation Discharge Plan Discharge Items Patient Disposition: Home - Home Health Services Reason For Visit: POST OP TKA Discharge Diagnosis: left total knee replacement Condition on Discharge: Good Activity: Per Instructions section Lifting: Wait until after follow-up appointment Weightbearing Comment: WBAT with walker Non-emergency contact: Surgeon Call non-emergency contact if: you have any medication questions, your temperature is above 101, your wound has increased redness, your wound has increased drainage and your wound pain has increased Follow-up/Referrals: Colin Wheeler [Primary Care Provider] - Diet: Regular Addtl Attending Provider Instructions: ACTIVITY RECOMMENDATIONS: HOME NURSING TO D/C HEMOVA TORROW AM (06/13/20) SELF CARE INSTRUCTIONS AFTER TOTAL KNEE REPLACEMENT A. You may need to continue a physical therapy program after discharge from the hospital. There are several options available to you. Your doctor will assist you in selecting the best one for you. 1. An out-patient facility 2 to 3 times a week for therapy or home therapy. 2. Continue working on all exercises taught to you in the hospital. Your goals should be to increase bending of your knee to 90 degrees and beyond and to fully straighten your knee. B. You may progress at your own pace from walking with a walker or crutches to a cane; then to no assistive devices. C. Make walking a part of your daily routine. Be up as much as comfortable with rest periods throughout the day. Rest with leg elevation is very important. Use the ice wrap frequently for the first 3-4 weeks. D. There are no restrictions on activities. You may ride in a car, shop, participate in learning disabilities resource teacher and all social activities. E. Wear the long elastic stockings (ZAN hose) 20 hours a day for 2 weeks after surgery. They can be removed several times a day for laundering and for a bath. F. You may shower, no tub baths until cleared by your doctor. SPECIAL CARE INSTRUCTIONS: VERY IMPORTANT TO READ AND REVIEW A. There are a few signs you need to watch for after you are home. Call [facility] if you notice any of the followin. Increased severe knee pain. Some pain is expected especially when you exercise. 2. Increased swelling in your leg or knee; pain or swelling of the calf muscle in either lower leg. 3. Any fluid drainage from the incision. 4. Shortness of breath or chest pain. B. Please call [facility] at if you have any concerns or questions about your operation or recovery. The doctor or his nurse will return your call promptly. C. You must take antibiotics before dental work, bladder, bowel or other surgery. Your doctor will provide you with a permanent care to carry describing this precaution. IMPORTANT: * REMEMBER TO TAKE ASPIRIN, 81 MG, TWICE DAILY FOR 4 WEEKS UNLESS OTHERWISE DIRECTED. THIS IS YOUR BLOOD THINNER. * HIGH RISK PATIENTS MAY BE PRESCRIBED A STRONGER BLOOD THINNER. THIS WILL BE PROVIDED AT DISCHARGE. * CALL IF INCREASED PAIN, REDNESS, DRAINAGE OR FEVER GREATER THAT 101. * WEAR ZAN HOSE 20 HOURS PER DAY FOR 2 WEEKS. * PAT Dressing- This is a large suction dressing covering your incision. This will help pull any excess drainage from the wound and allow your incision to heal properly. You may shower with this if you can keep the unit outside of the shower. If any bleeding or leakage is noted please call your doctor's office. This will remain on your incision for 7 days and then should be removed. This can be done yourself or by the home nursing staff if applicable. The entire unit is disposable once removed. Once removed, keep incision clean and dry. If redness or drainage is noted, please call your surgeon. IF INCISION IS LEAKING THROUGH DRESSING, CALL THE OFFICE . FOLLOW UP VISIT: If appointment is not already scheduled: Please call [facility] to make a follow-up appointment for 2 weeks after your surgery at . Pending Studies at Discharge: No Stand-Alone Forms: My [facility], Smoking Cessation Medications and DC Order Prescriptions: New celecoxib [Celebrex] 200 mg Capsule 200 mg PO BID 30 Days Qty: 60 RF: 0 aspirin 81 mg Tablet,Delayed Release (Dr/Ec) 81 mg PO BID 30 Days Qty: 60 RF: 0 acetaminophen 500 mg Tablet 1,000 mg PO Q8 21 Days Qty: 126 RF: 0 oxycodone 5 mg Tablet 5 - 10 mg PO Q6H PRN (Reason: pain) Qty: 30 RF: 0 docusate sodium 100 mg Capsule 100 mg PO BID 10 Days Qty: 20 RF: 0 cefadroxil 500 mg capsule 500 mg PO BID 10 Days Qty: 20 RF: 0 Continued multivitamin Tablet 1 tab PO QAM RF: 0 vitamin A 8,000 unit Capsule 8,000 unit PO QAM RF: 0 sucralfate 1 gram Tablet 1 g PO BID RF: 0 travoprost [Travatan Z] 0.004 % Drops 1 drp OPHTHALMIC (EYE) PM RF: 0 calcium carbonate [Calcium 600] 600 mg calcium (1,500 mg) Tablet 600 mg PO BID RF: 0 ascorbic acid (vitamin C) [Vitamin C] 500 mg Tablet 500 mg PO BID RF: 0 pantoprazole 40 mg Tablet,Delayed Release (Dr/Ec) 40 mg PO QAM RF: 0 gabapentin 300 mg Capsule 300 mg PO BID RF: 0 folic acid 1 mg Tablet 1 mg PO QAM RF: 0 iron 18 mg Tablet 18 mg PO QAM RF: 0 Restasis 0.05 % Dropperette 1 drp OPHTHALMIC (EYE) Q12H RF: 0 vitamin B complex-folic acid [B Complex 100] 0.4 mg Tablet 1 tab PO QAM RF: 0 cholecalciferol (vitamin D3) [Vitamin D3] 50 mcg (2,000 unit) Tablet 50 mcg PO QAM RF: 0 chromium amino acid chelate 400 mcg Tablet 400 mcg PO QAM RF: 0 Xeljanz XR 11 mg Tablet Extended Release 24 Hr 11 mg PO QAM RF: 0 duloxetine 30 mg Capsule, Delayed Rel Sprinkle 30 mg PO QAM RF: 0 levothyroxine 100 mcg 100 mcg PO QAM RF: 0 Discontinued celecoxib [Celebrex] 200 mg Capsule 200 mg PO QAM RF: 0 methotrexate sodium 2.5 mg Tablet 2.5 mg PO WK RF: 0 aloe vera 5,000 mg Capsule 5,000 mg PO QAM RF: 0 bilberry 100 mg Capsule 100 mg PO QAM RF: 0 vitamin E 400 unit Capsule 400 unit PO QAM RF: 0 melatonin 5 mg Tablet 5 mg PO HS PRN (Reason: Sleep) RF: 0 omega 4-[id number]-fish oil [Fish Oil] 1,200 (144-216) mg Capsule 2 cap PO QAM RF: 0 turmeric 400 mg Capsule 400 mg PO QAM RF: 0 Discharge Orders: Discharge Order (Routine); Ordered 06/12/20 Ordered By: Teodoro Montalvo Admission Data Admit Date/Time: 06/11/20 14:49 Attending Provider: Tyron Smalls Admit Provider: Tyron Smalls Primary Care Provider: Colin Wheeler Other Providers: Kapil Renee Other Interventions: Discharge Summary Assessment (RN) Last Done: 06/12/20 13:17
== END 2020-06-12 16:23 | disposition home health service (06) | DRG 470 ==
LOC: 3E 08:19 → ASU 08:19